=== PATIENT | female | born 1985 | race Caucasian/White ===

== ENCOUNTER 2025-04-23 18:40 | Emergency (ER) | payer MEDICAID, SELFPAY ==
[2025-04-23 18:40] VITALS: BMI 37.8
[2025-04-23 20:01] VITALS: BP 116/74; PULSE 100; RESP 18; TEMP 36.7; O2SAT 96
--- NOTE | 2025-04-23 20:48 | PD.EDNV ---
Nausea/Vomit./Diarrhea-RME/HPI General Chief complaint: Nausea/Vomiting/Diarrhea Stated complaint: vomiting Time Seen by Provider: 04/23/25 18:46 Arrival date/time: 04/23/25 18:40 40-year-old female reports with complaints of 2-day history of abdominal pain nausea vomiting and diarrhea. Patient states she stays in a [place] [facility] where another family had a stomach virus. Patient believes she has picked up something from them though she denies shortness of breath chest pain fevers chills cough congestion blood or mucus in stools or weakness. Patient states that she has not taken any medications for symptoms Limitations: no limitations Related Data Allergies Allergy/AdvReac Type Severity Reaction Status Date / Time Penicillins Allergy Unknown Verified 04/23/25 18:42 Review of Systems Constitutional Constitutional: Denies chills and Denies fever(s) Eyes Eyes: Denies change in vision and Denies exophthalmos ENT Ears, Nose, Mouth, and Throat: Denies sinus pressure, Denies sore throat and Denies vertigo Cardiovascular Cardiovascular: Denies chest pain and Denies dyspnea Respiratory Respiratory: Denies cough and Denies dyspnea Gastrointestinal Gastrointestinal: Reports abdominal pain, Reports loose stools, Reports nausea and Reports vomiting Genitourinary Genitourinary: Denies dysuria and Denies hematuria Musculoskeletal Musculoskeletal: Denies back pain and Reports myalgias Integumentary/Breasts Skin/Breast: Denies erythema and Denies rash Neurologic Neurologic: Denies convulsions and Denies vertigo Past Medical History Social History SMOKING STATUS: Never smoker ED Exam General Limitations: Present no limitations General appearance: Present alert and in no apparent distress Head Head exam: Present atraumatic Eye Eye exam: Present normal appearance, PERRL and EOMI ENT ENT exam: Present normal exam, normal oropharynx and mucous membranes moist Neck Neck exam: Present normal inspection, full ROM and trachea midline Chest Chest inspection: Present normal inspection and symmetric chest wall rise Respiratory Respiratory exam: Present normal lung sounds bilaterally Cardiovascular Cardiovascular exam: Present regular rate, normal rhythm and normal heart sounds Abdominal Exam Abdominal exam: Present soft and normal bowel sounds Extremities Exam Extremities exam: Present normal inspection and full ROM Back Exam Back exam: Present normal inspection and full ROM Neurological Exam Neurological exam: Present alert, oriented X3 and CN II-XII intact Psychiatric Psychiatric exam: Present normal affect and normal mood Skin Skin exam: Present warm, dry, intact and normal color Course Quality Measures none Vital Signs Vital signs: Vital Signs Temperature 98.1 F 04/23/25 20:01 Pulse Rate 100 04/23/25 20:01 Respiratory Rate 18 04/23/25 20:01 Blood Pressure 116/74 04/23/25 20:01 Pulse Oximetry (%) 96 04/23/25 20:01 Oxygen Delivery Method Room Air 04/23/25 20:01 Nausea/Vomiting/Diarrhea Patient data External records reviewed:: None Clinical information provided by:: patient Social determinants that could affect healthcare access:: none Patient has the following chronic illnesses:: none How is presenting disease/condition affected by chronic disease/condition?: no chronic disease Evaluation data The following diagnostics were reviewed and interpreted by me:: other (specify) (none) Lab and/or radiology exams considered but not ordered:: n/a Interpretation Summary: n/a Medications / Prescriptions Medications / Prescriptions considered but not ordered:: none Medication administrations:: Tylenol Consultations Consultation(s) initiated? (list below): No Diagnosis Nausea Differential Diagnosis: traveler's diarrhea, food poisoning and gastroenteritis Most likely diagnosis given after review of the tests above:: Viral gastroenteritis Admission Indicated Admission indicated?: not indicated Admission Request Was there a request for admission?: No Disposition Plan Disposition Plan: Discharge Discharge Attestation Discharge Attestation: The patient and all family members were given an opportunity to ask questions and understood the discharge instructions. Discharge instructions specifically effects, indications for sooner follow up or return to the emergency department, and the expected course of current diagnosis. Patient condition: Stable Discharge Plan Plan Patient Disposition: HOME (Self Care) Problem List Clinical Impression: Viral gastroenteritis Patient/Caregiver Discharge Instructions Discharge Activity: activity as tolerated Education Materials: ED Gastroenteritis, Viral (Adult) Additional Instructions: Your symptoms are most likely caused by a stomach virus.? Hydrate well with liquids that you can see through with the exception of alcohol such as Gatorade, water, joshau darnell, broths, popsicles, Jell-O etc., until the diarrhea and/or vomiting stops then you may increase to the BRAT (bananas, rice, applesauce, toast) diet while continuing liquid diet and then slowly working back to a normal diet however you should avoid foods such as dairy products, spicy foods, caffeine products, citrus products, or foods with sauces as this may cause more stomach upset. If diarrhea is severe and uncontrolled you may try [id number] medications such as Maalox, Mylanta, Milk of Magnesia. If symptoms does not improve in the next 3-5 days follow-up with primary care provider. If stomach pain worsens or you develop a fever and persistent vomiting go to the ER or call 911 Print Language: Latvian Stand Alone Forms: Maria L Award Info., Patient Portal Info Letter
[2025-04-23] MEDS: ACETAMINOPHEN 500 MG TABLET 1000 MG PO (21:14)
== END 2025-04-23 21:44 | disposition home or self-care (01) ==
LOC: SERX 21:56
PROVIDERS: Emergency Provider Physician Assistant
DX: A08.4 Viral intestinal infection, unspecified (principal)
CPT/HCPCS: 99281; A9270